=== PATIENT | male | born 2005 | race Caucasian/White ===

== ENCOUNTER 2025-08-25 21:48 | Emergency (ER) | payer MEDICAID, SELFPAY ==
--- NOTE | ~2025-08-25 | XR_ITS ---
CLINICAL HISTORY: cough 1 view chest x-ray Comparison: None provided Findings: No consolidation or effusion. Heart size is normal. No acute fracture. IMPRESSION: No consolidation. This document has been electronically signed by: Blanche Escamilla MD on 08/25/2025 23:12:24
[2025-08-25 21:55] VITALS: BP 114/57; PULSE 108; RESP 18; TEMP 37.9; O2SAT 98; BMI 26.2
[2025-08-25 22:17] LABS: MANUAL DIFF FLAG NO
[2025-08-25 22:20] LABS: Hematocrit 43.0 % (42.0-52.0); Hemoglobin 14.6 g/dl (14.0-18.0); Imm Gran Abs Auto 0.02 X10*3/uL (0.00-0.03); Imm Gran Pct Auto 0.3 % (0.0-0.4); Lymphocytes Absolute Auto 0.9 X10*3/uL (1.2-4.9); Mean Corpuscular HGB Conc 34.0 g/dl (31.0-36.0); Mean Corpuscular Hemoglobin 28.9 pg (27.0-33.0); Mean Corpuscular Volume 85.1 fL (80.0-98.0); NRBC Abs Auto 0.000 X10*3/uL (0.0-0.012); NRBC Pct Auto 0.0 /100WBC (0.0-0.2); Platelet Count 241 X10*3/uL (160-400); Red Blood Count 5.05 X10*6/uL (4.60-5.80); White Blood Count 5.9 X10*3/uL (4.8-10.8)
[2025-08-25 22:33] LABS: IDNOW Serial# 6674DD1D; Strep A Nucleic Acid Negative (Negative)
[2025-08-25 22:35] LABS: Alanine Aminotransferase 29 U/L (0-40); Albumin Level 4.8 g/dL (3.5-5.0); Alkaline Phosphatase 82 U/L (39-117); Anion Gap 13 (12-20); Aspartate Amino Transferase 37 U/L (5-37); Blood Urea Nitrogen 11 mg/dL (9-16); Calcium 9.0 mg/dL (8.4-10.2); Carbon Dioxide 23 mmol/L (22-29); Chloride 104 mmol/L (96-108); Creatinine Clr Calc Pharmacy 144.7; Estimated Glomerular Filt Rate > 60; Magnesium 2.1 mg/dL (1.6-2.6); Potassium 3.6 mmol/L (3.3-5.1); Sodium 136 mmol/L (135-145); Total Protein 7.7 g/dL (6.5-8.0)
[2025-08-25 22:58] LABS: Resp Syncy Virus RNA Qual PCR NEGATIVE (Negative); SARS COV2 PCR INHOUSE NEGATIVE (Negative)
--- NOTE | 2025-08-26 00:12 | ED.GENADULT ---
HPI - General Adult General Chief complaint: Upper Respiratory Symptoms Stated complaint: Dizzy fall hit head Time Seen by Provider: 08/25/25 23:54 History of Present Illness ED Provider: Moon Dodd NP [facility] narrative: 20-year-old male otherwise healthy presents to the ED reporting nasal congestion, generalized malaise, headache, dry nonproductive cough, chills, body aches ongoing for the past 3 days. He endorses some nausea without vomiting. He denies any known sick contacts. He reports feeling generalized weakness and fatigue. He is arriving from [facility], where the nurse there administered him Tylenol, ibuprofen, and what he believes was Zyrtec. This did help. He denies any chest pain or pressure, shortness of breath, abdominal pain. No urinary complaints. Related Data Allergies Allergy/AdvReac Type Severity Reaction Status Date / Time No Known Allergies Allergy Verified 08/25/25 22:01 Review of Systems Review of Systems: ROS is otherwise negative unless mentioned in HPI. Physical Exam ED Exam Exam: Nursing notes and vital signs reviewed. Constitutional: Well-appearing, NAD. Alert. Oriented X3. Eyes: EOMI. ENT: Pharynx normal. Neck: Normal inspection. Neck supple. CVS: Normal heart rate and rhythm. Pulses normal. Respiratory: No respiratory distress. Breath sounds normal. Skin: Skin warm and dry. Normal skin color. Extremities: No lower extremity edema. Neuro: Oriented X 3. No motor deficit. Vital Signs: Vital Signs - 24 hr 08/25/25 21:55 Temperature 100.2 F Pulse Rate 108 H Respiratory Rate 18 Blood Pressure 114/57 L Pulse Oximetry 98 Oxygen Delivery Method Room Air BMI result Body Mass Index 26.2 Medical Decision Making Medical Decision Making [facility] Narrative: 12:38 AM 08/26/2025 (Moon Dodd NP): Upon my assessment, the patient is sitting in the PIT area. She has tissues stuffed up both sides of his nose, and reports significant nasal congestion but also clear rhinorrhea. He denies any headache or dizziness, lightheadedness. No recent head injury or trauma, contradictory of the triage note. Reporting viral illness like symptoms. Basic labs were obtained and are reassuring. His viral panel however is positive for influenza a, an x-ray of the chest shows no acute pneumonia. Symptoms relatively all related to viral illness. He arrived borderline tachycardic in the low 100s, upon recheck is in the mid 80s. No suspicion for sepsis. Encouraged oral hydration, nutritious meals. Given return precautions to the ED. Patient is agreeable, expressed understanding with plan of care. Differential Diagnosis Differential Diagnoses: The differential diagnosis associated with the presentation includes Recently areas viral illness, pneumonia, strep pharyngitis Admission/Observation Consideration of admission/observation: Escalation of care including admission/observation considered (Not indicated) Lab Data MDM Lab Attestation statement: I reviewed the patient's lab results. (Reassuring overall.) 08/25/25 22:12 08/25/25 22:12 Labs: Lab Results 08/25/25 Range/Units 22:12 WBC 5.9 (4.8-10.8) X10*3/uL RBC 5.05 (4.60-5.80) X10*6/uL Hgb 14.6 (14.0-18.0) g/dl Hct 43.0 (42.0-52.0) % MCV 85.1 (80.0-98.0) fL MCH 28.9 (27.0-33.0) pg MCHC 34.0 (31.0-36.0) g/dl RDW 12.5 (11.0-16.0) % Plt Count 241 (160-400) X10*3/uL MPV 9.5 (9.4-12.4) fL Immature Gran % (Auto) 0.3 (0.0-0.4) % Neut % (Auto) 64.7 (45-73) % Lymph % (Auto) 16.0 L (20-40) % Jackson % (Auto) 18.2 H (2-11) % Eos % (Auto) 0.3 (0-4) % Baso % (Auto) 0.5 (0-2) % Lymph # (Auto) 0.9 L (1.2-4.9) X10*3/uL Jackson # (Auto) 1.1 (0.1-1.2) X10*3/uL Eos # (Auto) 0.0 (0.0-0.4) X10*3/uL Baso # (Auto) 0.0 (0.0-0.2) X10*3/uL Abs Immat Gran (auto) 0.02 (0.00-0.03) X10*3/uL Absolute Neuts (auto) 3.8 (2.0-8.3) x10*3/uL Absolute Nucleated RBC 0.000 (0.0-0.012) X10*3/uL Nucleated RBC % (auto) 0.0 (0.0-0.2) /100WBC Sodium 136 (135-145) mmol/L Potassium 3.6 (3.3-5.1) mmol/L Chloride 104 (96-108) mmol/L Carbon Dioxide 23 (22-29) mmol/L Anion Gap 13 (12-20) BUN 11 (9-16) mg/dL Creatinine 0.86 (0.5-1.4) mg/dL Estim Creat Clear Calc 144.7 Estimated GFR > 60 Random Glucose 89 (60-115) mg/dL Calcium 9.0 (8.4-10.2) mg/dL Magnesium 2.1 (1.6-2.6) mg/dL Total Bilirubin 0.5 (0.0-1.0) mg/dL AST 37 (5-37) U/L ALT 29 (0-40) U/L Alkaline Phosphatase 82 (39-117) U/L Total Protein 7.7 (6.5-8.0) g/dL Albumin 4.8 (3.5-5.0) g/dL Influenza Type A (PCR) POSITIVE A (Negative) Influenza Type B (PCR) NEGATIVE (Negative) RSV RNA Qual (PCR) NEGATIVE (Negative) SARS-CoV-2 RNA (RT-PCR) NEGATIVE (Negative) S. pyogenes GrpA FLORIN Negative (Negative) Independent Interpretation I performed an independent interpretation of an: Plain X-Ray Interpretation: I have reviewed the patient's imaging and agree with the radiologist's findings. Radiology Impression Discussion of test interpretation with radiology: I have reviewed the radiologist's reading. Radiologist Impression: X-Ray Chest IMPRESSION: No consolidation. External Record Review None available Prescription Management I considered prescription management with: Antiviral Does not meet Tamiflu criteria, Sx > 2 days Chronic Conditions None Social Determinants Patient?s care significantly limited by Social Determinants of Health including: Problems related to primary support group Discharge Plan Discharge Clinical Impression: Influenza A Patient Disposition: Home, Self-Care Instructions: Influenza (DC) Additional Instructions: As we discussed, your lab work today was overall reassuring. However, your viral panel is positive for influenza A. Please stay away from others until you no longer have symptoms. The x-ray of her chest shows no acute pneumonia. The if any worsening complaints at any time, you may return to the ED for additional assessment. Use [id number] Tylenol, ibuprofen, and engage in supportive care measures. Referrals: [facility] [place] Family Medicine [Provider Group, Family Practice] Stand Alone Forms: Work/School Release Print Language: Belgian
[2025-08-26 00:51] VITALS: BP 114/57; PULSE 108; RESP 18; TEMP 37.9; O2SAT 98
== END 2025-08-26 00:51 | disposition home or self-care (01) ==
PROVIDERS: Emergency Provider Emergency Medicine
DX: J10.1 Influenza due to other identified influenza virus with other respiratory manifestations (principal); R05.9 Cough, unspecified; Z03.818 Encounter for observation for suspected exposure to other biological agents ruled out
CPT/HCPCS: 71045; 80053; 83735; 85025; 87637; 87651; 99282; 99283

== ENCOUNTER → 2025-08-25 22:02 | Outpatient (BNV) | payer SELFPAY | PROVIDERS: Emergency Provider Emergency Medicine; Visit Provider Radiology Diagnostic Radiology | DX: R05.9 Cough, unspecified (principal) | CPT/HCPCS: 71045 ==